=== PATIENT | male | born 1975 | race Caucasian/White ===

== ENCOUNTER 2017-06-12 23:22 | Emergency (ER) | payer OTHER ==
[2017-06-12 23:36] VITALS: BP 123/72; PULSE 75; TEMP 98.7; BMI 25.0
--- NOTE | 2017-06-13 00:30 | PDOC ---
History of Present Illness - General History Source: Patient <Neo Swannkinza - Last Filed: 06/13/17 01:55> <Denis Roth - Last Filed: 06/13/17 02:45> - General Chief Complaint: Chest Pain Stated Complaint: CHEST PAIN Time Seen by Provider: 06/13/17 00:30 - History of Present Illness Initial Comments: 06/13/17 01:27 The patient is a 41 year old male, with a significant past medical history of one episode of hospital admission due to dizziness, who presents to the emergency department with, sharp chest pain and cold sweats that occurred tonight while showering. He reports his pain worsened when he moved his arms. His symptoms resolved prior to arrival. He denies shortness of breath. He denies edema. He denies any recent fevers, chills, headache or dizziness. He denies any recent nausea, vomit, diarrhea or constipation. He denies any recent dysuria, frequency, urgency or hematuria. Allergies: NKA Past surgical history: None reported. Social History: Social drinker. Nonsmoker. Denies recreational drug use. (Nicole Swann) Past History <JeffcalebJrsarakinza - Last Filed: 06/13/17 01:55> - Suicide/Smoking/Psychosocial Hx Smoking History: Never smoked Have you smoked in the past 12 months: No Information on smoking cessation initiated: No Hx Alcohol Use: No Drug/Substance Use Hx: No <Denis Roth - Last Filed: 06/13/17 02:45> - Past Medical History Allergies/Adverse Reactions: Allergies Allergy/AdvReac Type Severity Reaction Status Date / Time No Known Allergies Allergy Verified 06/12/17 23:35 Review of Systems - Review of Systems Able to Perform ROS?: Yes All Other Systems: Reviewed and Negative <Nicole Swann - Last Filed: 06/13/17 01:55> <Denis Roth - Last Filed: 06/13/17 02:45> - Review of Systems Comments:: 06/13/17 01:33 CONSTITUTIONAL: No fever, no chills, no fatigue EYES: No visual changes ENT: No ear pain, no sore throat CARDIOVASCULAR: +chest pain (resolved). +cold sweats (resolved). no palpitations RESPIRATORY: No cough, no SOB GI: No abdominal pain, no nausea, no vomiting, no constipation, no diarrhea GENITOURINARY: No dysuria, no frequency, no hematuria MUSKULOSKELETAL: No backpain, no joint pain, no myalgias SKIN: No rash NEURO: No headache (Nicole Swann) *Physical Exam <Nicole Swann - Last Filed: 06/13/17 01:55> <Denis Roth - Last Filed: 06/13/17 02:45> - Vital Signs Last Vital Signs Temp Pulse Resp BP Pulse Ox 98.7 F 75 14 123/72 100 06/12/17 23:35 06/12/17 23:35 06/12/17 23:35 06/12/17 23:35 06/12/17 23:35 - Physical Exam Comments: 06/13/17 01:33 CONSTITUTIONAL: Well-appearing; well-nourished; in no apparent distress HEAD: Normocephalic; atraumatic EYES: PERRL; EOM intact ENMT: External appears normal; normal oropharynx NECK: Supple; non-tender; no cervical lymphadenopathy CARD: Normal S1, S2; no murmurs, rubs, or gallops RESP: Normal chest excursion with respiration; breath sounds clear and equal bilaterally; no wheezes, rhonchi, or rales ABD: Soft, non-distended; non-tender; no palpable organomegaly, no palpable hernias EXT: Normal ROM in all four extremities; non-tender to palpation; distal pulses intact SKIN: Warm, dry, no rash NEURO: No focal neurological deficiencies. (Nicole Swann) ED Treatment Course - LABORATORY CBC & Chemistry Diagram: 06/13/17 02:09 06/13/17 02:09 <Denis Roth - Last Filed: 06/13/17 02:45> - ADDITIONAL ORDERS Additional order review: Laboratory Results 06/13/17 02:09 PT with INR 12.50 H INR 1.11 06/13/17 02:09 RBC 5.02 MCV 89.2 MCHC 34.4 RDW 12.0 MPV 9.4 Neutrophils % 72.6 Lymphocytes % 18.5 Monocytes % 7.0 Eosinophils % 1.6 Basophils % 0.3 - RADIOLOGY Radiology Studies Ordered: Category Date Time Status CHEST X-RAY PORTABLE* [RAD] Stat Radiology 06/13/17 01:17 Ordered - Medications Given in the ED: ED Medications Discontinued Medications Generic Name Dose Route Start Last Admin Trade Name Jason PRN Reason Stop Dose Admin Aspirin 325 mg 06/13/17 01:17 06/13/17 02:19 Ecotrin - PO 06/13/17 01:18 325 mg ONCE ONE Administration Medical Decision Making <Nicole Swann - Last Filed: 06/13/17 01:55> <Denis Roth - Last Filed: 06/13/17 02:45> - Medical Decision Making 06/13/17 01:55 EKG: Normal sinus rhythm Septal infarct, age undetermined Abnormal ECG Vent rate 71bpm [place] interval 158ms QRS duration 86 ms QT/QTc 352/382 ms P-R-T axes 50 43 31 (Nicole Swann) 06/13/17 02:05 Patient is a 44-year-old male with no previous medical history who presents to the ER with atypical left-sided chest discomfort. Will rule out [place] with serial cardiac enzymes. EKG reveals normal sinus rhythm at rate of 71 with Q waves in V1 and V2 without a previous EKG for comparison. Will obtain chest x-ray to rule out cardiomegaly. We'll administer aspirin. We'll consider free ED obs. ( Denis Roth) *DC/Admit/Observation/Transfer <Nicole Swann - Last Filed: 06/13/17 01:55> - Discharge Dispostion Admit: Yes <Denis Roth - Last Filed: 06/13/17 02:45> Diagnosis at time of Disposition: Chest pain Qualifiers: Chest pain type: unspecified Qualified Code(s): R07.9 - Chest pain, unspecified - Discharge Dispostion Condition at time of disposition: Fair - Attestations Scribe Attestion: 06/13/17 01:33 Documentation prepared by Nicole Swann, acting as mobile paramedical examiner for Denis Roth MD. (Nicole Swann) Physician Attestion: 06/13/17 02:05 The documentation was prepared by the scribe under my direct supervision. I have reviewed the documentation which correctly represents the findings, medical decision-making and critical action taken by me. (Denis Roth)
[2017-06-13] MEDS ORDERED: ASPIRIN 325 MG ENTERIC COATED TABLET (FP) PO ONE (01:17)
[2017-06-13] MEDS ORDERED: ASPIRIN 325 MG TABLET ONE (02:13)
[2017-06-13 02:28] LABS: BASOPHIL 0.3 % (0-2.0); EOSINOPHIL 1.6 % (0-4.5); MCH 30.7 pg (25.7-33.7); MCHC 34.4 g/dl (32.0-35.9); MEAN CELL VOLUME 89.2 fl (80-96); MEAN PLT VOLUME 9.4 fl (7.5-11.1); NEUTROPHILS 72.6 % (42.8-82.8); PLATELET COUNT 170 K/MM3 (134-434); WHITE BLOOD COUNT 10.8 K/mm3 (4.0-10.0)
[2017-06-13 02:39] LABS: INR 1.11 (0.82-1.09); PROTHROMBIN TIME (PATIENT) 12.5 SEC (9.98-11.88)
[2017-06-13 02:49] LABS: ALBUMIN 4.1 g/dl (3.4-5.0); ANION GAP 9 (8-16); BILIRUBIN,TOTAL 0.4 mg/dL (0.2-1.0); CALCIUM 8.8 mg/dL (8.5-10.1); CO2 29 mmol/L (21-32); GLUCOSE,RANDOM 92 mg/dL (74-106); SGPT/ALT 37 U/L (12-78); TOT PROT 7.8 g/dl (6.4-8.2)
[2017-06-13 02:52] LABS: ALK PHOS 66 U/L (45-117); TROPONIN I < 0.02 ng/ml (0.00-0.05)
[2017-06-13 02:53] LABS: CPK 322 IU/L (39-308); SGOT/AST 25 U/L (15-37)
--- NOTE | 2017-06-13 06:08 | PDOC ---
*Physical Exam - Vital Signs Last Vital Signs Temp Pulse Resp BP Pulse Ox 98.7 F 75 14 123/72 100 06/12/17 23:35 06/12/17 23:35 06/12/17 23:35 06/12/17 23:35 06/12/17 23:35 ED Treatment Course - LABORATORY CBC & Chemistry Diagram: 06/13/17 02:09 06/13/17 02:09 - ADDITIONAL ORDERS Additional order review: Laboratory Results 06/13/17 06/13/17 02:09 02:09 PT with INR 12.50 H INR 1.11 Sodium 140 Potassium 4.3 Chloride 102 Carbon Dioxide 29 Anion Gap 9 BUN 22 H Creatinine 1.0 Creat Clearance w eGFR > 60 Random Glucose 92 Calcium 8.8 Total Bilirubin 0.4 AST 25 ALT 37 Alkaline Phosphatase 66 Creatine Kinase 322 H Creatine Kinase Index 0.5 CK-MB (CK-2) 1.806 Troponin I < 0.02 Total Protein 7.8 Albumin 4.1 06/13/17 02:09 RBC 5.02 MCV 89.2 MCHC 34.4 RDW 12.0 MPV 9.4 Neutrophils % 72.6 Lymphocytes % 18.5 Monocytes % 7.0 Eosinophils % 1.6 Basophils % 0.3 - Medications Given in the ED: ED Medications Discontinued Medications Generic Name Dose Route Start Last Admin Trade Name Jason PRN Reason Stop Dose Admin Aspirin 325 mg 06/13/17 01:17 06/13/17 02:19 Ecotrin - PO 06/13/17 01:18 325 mg ONCE ONE Administration Medical Decision Making - Medical Decision Making 06/13/17 06:05 Sign out taken from Dr. Roth at 2AM. 41M with atypical chest pain x 1 day. - EKG nonischemic - Trop negative x 2 - Pt reassessed and now feels significantly better. Pt is well appearing with normal vitals. Clinically stable for DC. *DC/Admit/Observation/Transfer Diagnosis at time of Disposition: Chest pain Qualifiers: Chest pain type: unspecified Qualified Code(s): R07.9 - Chest pain, unspecified - Discharge Dispostion Condition at time of disposition: Fair - Referrals - Patient Instructions Printed Discharge Instructions: DI for Atypical Chest Pain Additional Instructions: Follow up with a top lift and automatic window repairer within 1 week for further evaluation of your chest pain. If you experience worsening pain, shortness of breath, fevers, or any other concerning symptoms, return to the ER immediately. - Post Discharge Activity - Attestations Physician Attestion: 06/13/17 06:07 I, Dr. Fran Alegria MD, attest that this document has been prepared under my direction and personally reviewed by me in its entirety. I further attest, that it accurately reflects all work, treatment, procedures and medical decision -making performed by me.
[2017-06-13 06:29] LABS: CPK 252 IU/L (39-308); TROPONIN I < 0.02 ng/ml (0.00-0.05)
--- NOTE | 2017-06-13 21:26 | EKG ---
Test Reason : Blood Pressure : / mmHG Vent. Rate : 071 BPM Atrial Rate : 071 BPM P-R Int : 158 ms QRS Dur : 086 ms QT Int : 352 ms P-R-T Axes : 050 043 031 degrees QTc Int : 382 ms NORMAL SINUS RHYTHM SEPTAL INFARCT , AGE UNDETERMINED ABNORMAL ECG NO PREVIOUS ECGS AVAILABLE Confirmed by ALEJANDRO PINON MD ([id number]) on 06/13/2017 9:26:02 PM Referred By: Confirmed By:ALEJANDRO PINON MD
== END 2017-06-13 07:13 | disposition home or self-care (01) ==
LOC: JER 23:22
DX: R07.9 Chest pain, unspecified (principal)
CPT/HCPCS: 36415; 71010-TC; 80053; 82550; 82553; 84484; 85025; 85610; 93005; 93010; 99281-25